=== PATIENT | female | born 1990 | race Caucasian/White ===

== ENCOUNTER 2020-02-02 12:52 | Outpatient (CLI) | payer OTHER, SELFPAY | END 2020-02-02 12:53 | disposition home or self-care (01) | PROVIDERS: Visit Provider Obstetrics & Gynecology | DX: Z34.90 Encounter for supervision of normal pregnancy, unspecified, unspecified trimester (principal) | CPT/HCPCS: 36415; 86850; 86900; 86901 ==

== ENCOUNTER 2020-03-15 14:49 | Outpatient (CLI) | payer OTHER, SELFPAY ==
--- NOTE | ~2020-03-15 | US_ITS ---
EXAMINATION: US OB follow up DATE: 03/15/2020 15:29 INDICATION: care. Establish dating of during early second trimester. TECHNIQUE: Real-time ultrasound of the pelvis was performed. The interpreting radiologist was not pre sent for the study. COMPARISON: None. FINDINGS: There is a single living fetus in variable presentation. The placenta is posterior. heart rate is 145 beats per minute (bpm). The amniotic fluid volume is subjectively normal. The following biometric data were obtained: BPD: 3.8 cm -> 17 weeks 4 days Head circumference: 13.6 cm -> 17 weeks 0 days Abdominal circumference: 11.2 cm -> 17 weeks 0 days Femur length: 2.2 cm -> 16 weeks 4 days These measurements are concordant. Head circumference to abdominal circumference ratio: 1.22 (normal range 1.07-1.29). Estimated weight: 171 g (+/-) 26 g. or 6 oz. (+/-) 1 oz. IMPRESSION: 1. Single living fetus in variable presentation with heart rate of 145 bpm. 2. Gestational age by ultrasound of 17 weeks 0 day(s) +/- 1 week(s) 1 day(s) with ultrasound estimate d date of delivery (JACKSON) of 08/23/2020. Estimated weight is 78th percentile by Hadlock criteria when 08/28/2020 is used as the JACKSON. Please correlate with clinical information or earlier ultrasound s for most accurate JACKSON. Reviewed, dictated and finalized at location A. IMPRESSION: 1. Single living fetus in variable presentation with heart rate of 145 bp m. 2. Gestational age by ultrasound of 17 weeks 0 day(s) +/- 1 week(s) 1 day(s) wi th ultrasound estimated date of delivery (JACKSON) of 08/23/2020. Estimated w eight is 78th percentile by Hadlock criteria when 08/28/2020 is used as the JACKSON . Please correlate with clinical information or earlier ultrasounds for most ac curate JACKSON.
== END 2020-03-15 14:50 | disposition home or self-care (01) ==
LOC: ANHIMG 14:56
PROVIDERS: Visit Provider Obstetrics & Gynecology
DX: Z34.92 Encounter for supervision of normal pregnancy, unspecified, second trimester (principal); Z3A.17 17 weeks gestation of pregnancy
CPT/HCPCS: 76816

== ENCOUNTER 2020-04-08 12:13 | Outpatient (CLI) | payer OTHER, SELFPAY ==
[2020-04-10 12:51] LABS: Progesterone 48.9 ng/mL (***)
== END 2020-04-08 12:14 | disposition home or self-care (01) ==
PROVIDERS: Visit Provider Obstetrics & Gynecology
DX: Z34.90 Encounter for supervision of normal pregnancy, unspecified, unspecified trimester (principal)
CPT/HCPCS: 36415; 84144

== ENCOUNTER 2020-07-12 08:58 | Outpatient (CLI) | payer OTHER, SELFPAY ==
--- NOTE | ~2020-07-12 | US_ITS ---
EXAMINATION: US OB follow up DATE: 07/12/2020 09:38 INDICATION: Encounter for supervision of normal . TECHNIQUE: Real-time ultrasound of the pelvis was performed. COMPARISON: Ultrasound 03/15/2020 FINDINGS: There is a single living fetus in vertex presentation. The placenta is posterior and fundal. h eart rate is 131 beats per minute (bpm). The amniotic fluid index is 13.3 cm, which is normal. The following biometric data were obtained: Biparietal diameter (BPD): 8.9 cm; head circumference (HC): 31.9 cm; abdominal circumference (AC): 29 .2 cm; femur length (FL): 6.7 cm. These measurements are concordant. Estimated weight is 2346 g +/- 352 g, which correlates with 46th percentile when 08/23/20 is us ed as estimated date of delivery. As single measurements, these parameters are each equal to the following estimated gestational ages: BPD: 35 weeks 6 days. HC: 35 weeks 6 days. AC: 33 weeks 1 days. FL: 34 weeks 3 days. estimated gestational age based solely on measurements from this exam is 34 weeks 6 days +/- 2 weeks 3 days. IMPRESSION: 1. Single living fetus in vertex presentation. 2. Estimated weight is 2346 g +/- 352 g, which correlates with 46th percentile when 08/23/20 i s used as estimated date of delivery. Reviewed, dictated and finalized at location A. IMPRESSION: 1. Single living fetus in vertex presentation. 2. Estimated weight is 2346 g +/- 352 g, which correlates with 46th perc entile when 08/23/20 is used as estimated date of delivery.
[2020-07-12] MEDS: RHO(D) IMMUNE GLOBULIN 300 MCG SYRINGE IM (15:26)
== END 2020-07-12 08:59 | disposition home or self-care (01) ==
PROVIDERS: Visit Provider Physician Assistant
DX: Z34.93 Encounter for supervision of normal pregnancy, unspecified, third trimester (principal)
CPT/HCPCS: 36415; 76816; 85461; 90384; 96372; J2790

== ENCOUNTER 2020-08-15 14:41 | Outpatient (CLI) | payer OTHER, SELFPAY ==
[2020-08-15 15:18] LABS: Basophils Percent Auto 0.4 % (0.2-1.2); Eosinophils Absolute Auto 0.2 K/mm3 (0-0.3); Eosinophils Percent Auto 1.5 % (0-4.4); Hematocrit 35.8 % (37.0-47.0); Hemoglobin 11.6 g/dL (12.0-15.0); Immature Granulocyte Absolute 0.12 K/mm3 (0.00-0.031); Immature Granulocyte Percent A 1.2 % (0-0.5); Lymphocytes Absolute Auto 1.89 K/mm3 (0.9-3.2); Lymphocytes Percent Auto 18.4 % (18.3-44.2); Mean Corpuscular HGB Conc 32.4 g/dl (32-36); Mean Corpuscular Hemoglobin 25.8 pg (26-34); Mean Corpuscular Volume 79.7 fl (80-100); Mean Platelet Volume 10.6 fl (7.4-10.4); Monocytes Absolute Auto 0.6 K/mm3 (0.1-0.6); Monocytes Percent Auto 5.7 % (2.6-8.5); Neutrophils Absolute Auto 7.5 K/mm3 (1.3-6.7); Neutrophils Percent Auto 72.8 % (45.5-73.1); Platelet Count Result 282 k/mm3 (150-375); Red Blood Count 4.49 M/mm3 (4.2-5.4); Red Cell Distribution Width 13.5 % (11.5-14.5); White Blood Count 10.3 K/mm3 (4.5-10.0)
[2020-08-15 16:09] LABS: HIV 1/2 Ab P24 Ag Result Negative (Negative)
[2020-08-16 11:09] LABS: Rapid Plasma Reagin Non-Reactive (NonReactive)
== END 2020-08-15 14:42 | disposition home or self-care (01) ==
PROVIDERS: PCP Obstetrics & Gynecology; Visit Provider Obstetrics & Gynecology
DX: Z01.812 Encounter for preprocedural laboratory examination (principal); O34.218 Maternal care for other type scar from previous cesarean delivery; Z3A.39 39 weeks gestation of pregnancy
CPT/HCPCS: 36415; 85025; 86592; 86703; 86850; 86900; 86901; G0432

== ENCOUNTER 2020-08-16 10:56 | Inpatient (IN) | payer OTHER, SELFPAY ==
[2020-07-24 13:40] VITALS: BMI 44.3
--- NOTE | 2020-08-15 19:48 | PM.IMHP ---
H&P: HPI History of Present Illness Date/Time: 08/15/20 19:48 Chief complaint: pre admit, Previous Narrative: Linda Portillo is a 30 year old female with history of NOÉ, depression, low progesterone, and prior due to failure to descend presents for Repeat LTCS under spinal anesthesia I explained her condition procedure and risks she understands accepts and agrees to proceed Review of Systems Review of Systems: All systems reviewed & are unremarkable except as noted in HPI and below Constitutional: Constitutional: Reports no additional constitutional complaints Eyes: Eyes: Reports no additional eye complaints ENT: Reports system reviewed and no additional complaints, except as documented Cardiovascular: Cardiovascular: Reports no additional cardiovascular complaints Respiratory: Respiratory: Reports no additional respiratory complaints Gastrointestinal: Gastrointestinal: Reports no additional gastrointestinal complaints Genitourinary: Genitourinary: Reports no additional female genitourinary complaints Musculoskeletal: Musculoskeletal: Reports no additional musculoskeletal complaints Integumentary/Breasts: Skin/Breast: Reports system reviewed and no additional complaints, except as docu Neurologic: Reports system reviewed and no additional complaints, except as documented Psychiatric: Psychiatric: Reports no additional psychiatric complaints Endocrine: Endocrine: Reports no additional endocrine complaints Hematologic/Lymphatic: Hematologic/Lymphatic: Reports no additional hematologic/lymphatic complaints Allergic/Immunologic: Allergic/Immunologic: Reports no additional allergic/immunologic complaints [facility] Past Medical History Medical History (Updated 08/15/20 @ 19:59 by Doug Orourke MD) BV (bacterial vaginosis) NOÉ (generalized anxiety disorder) MDD (major depressive disorder) Obese Rh negative status during UTI (urinary tract infection) during Surgical History Surgical History (Updated 08/15/20 @ 19:57 by Doug Orourke MD) Delivery by section 10/02/11 8-2 male Primary LTCS [facility] for CPD Family History Family History Father Hypertension Diabetes mellitus Mother Heart attack Social History Social History (Updated 08/15/20 @ 20:02 by Doug Orourke MD) Smoking packs per day: 0.5 Smoking cigarettes per day: 10.0 Years smoked: 5 Smoking pack-years: 2.50 Smoking status: Current some day smoker Tobacco type: cigarettes Second hand tobacco smoke exposure: Yes Alcohol intake: former Substance use: never Substance use type: does not use Living arrangements: with family Occupation/Education: unemployed Gender identity (if verbalized by the patient): Female Sexual Orientation (if Verbalized by the Patient): Straight or Heterosexual Spiritual care concerns: No Agree to blood products: Yes Exam Const: General: cooperative, healthy appearing, comfortable, well developed, alert, awake and Physically active Nutritional Appearance: average body habitus, well nourished and obese Orientation/consciousness: patient oriented x3 Limitations: no limitations HENMT: Head: normal to inspection Eyes: General: appearance normal, both eyes and all related structures Visual Montiel: normal visual montiel by confrontation Alignment and Position: alignment normal Neck: Neck: normal visual inspection and full ROM Chest: Chest palpation & inspection: normal inspection of the chest Breast/axilla inspection: normal inspection of the breasts Breast/axilla palpation: normal palpation of the breasts Resp: Effort & Inspection: normal respiratory effort Auscultation: clear to auscultation bilaterally Cardio: Jugular venous distension: no JVD Palpation: normal PMI Rate: regular rate Rhythm: regular rhythm Heart sounds: S1 normal heart sound present a
--- NOTE | 2020-08-15 20:07 | WPDHPUPDATE1 ---
History and Physical Update Update Date/Time: 08/16/20 08:07 History and Physical has been reviewed, including an updated exam of the patient. There are NO changes in the patient's condition. Risks, benefits, and alternatives have been discussed and questions answered. Patient agrees to proceed with procedure. Linda Portillo is a 30 year old female with history of NOÉ, depression, low progesterone, and prior due to failure to descend presents for Repeat LTCS under spinal anesthesia I explained her condition procedure and risks she understands accepts and agrees to proceed
--- NOTE | 2020-08-15 20:08 | WPDOBADMIT ---
Obstetrics - Admit Note Admission Note: record reviewed. No pertinent additions to the history and/or any subsequent changes in the physical findings that are not consistent with the expected course of the were found. Additions to the history and/or subsequent changes in the physical findings follow. None. Linda Portillo is a 30 year old female with history of NOÉ, depression, low progesterone, and prior due to failure to descend presents for Repeat LTCS under spinal anesthesia I explained her condition procedure and risks she understands accepts and agrees to proceed
[2020-08-16] VITALS (76 sets, daily range): BP systolic 86–132; BP diastolic 42–106; PULSE 71–138; RESP 16–20; TEMP 36–36.9; O2SAT 82–100; BMI 45.7
[2020-08-16] MEDS: LACTATED RINGERS 1,000 ML 125 ML IV CONT ×2 (11:25→12:00)
--- NOTE | 2020-08-16 11:30 | LDADM ---
This patient, Linda Portillo, was admitted to OB room 118 on 08/16/20 at 10:56. Plans for Surgery/ and pain management were discussed with patient. Patient/family oriented to hospital policies and general routines including ID bracelet, bed and alarms, visiting hours, pain management, procedures, bathroom and other care routines, personal items, smoking policy, room service/diet and guest tray routines, security routines, and visiting hours. Patient/Family are encouraged to report perceived risks to care and to ask questions if they do not understand what they are told or what they should do.
--- NOTE | 2020-08-16 11:47 | P.PNAN_ITS ---
Anes - Initial Pre Proc Eval Procedure: Operation Date: 08/16/20 12:00 Proposed Procedures p Repeat Low Transverse Section - Doug Orourke MD Date/Time: 08/16/20 11:47 Surgeon: Doug Orourke MD Pre Op Diagnosis: C Section Patient Data Age: 30 Gender: F Height: 5 ft 2 in Weight: 110 kg Last Vital Signs Pulse 99 08/16/20 11:31 BP 114/69 08/16/20 11:31 Allergies Allergy/AdvReac Type Severity Reaction Status Date / Time pistachio nut Allergy Swelling Verified 08/16/20 11:15 of Lip/Tongue/Throat Home Medications Medication Instructions Recorded Confirmed Type No Home Medications 08/16/20 08/16/20 History Patient hx anesthesia problems: none Family hx anesthesia problems: none PMFSH Past Medical History Medical History BV (bacterial vaginosis) NOÉ (generalized anxiety disorder) MDD (major depressive disorder) Obese Rh negative status during UTI (urinary tract infection) during Surgical History Surgical History Delivery by section 10/02/11 8-2 male Primary LTCS [facility] for CPD Family History Family History Father Hypertension Diabetes mellitus Mother Heart attack Social History Social History Smoking packs per day: 0.5 Smoking cigarettes per day: 10.0 Years smoked: 5 Smoking pack-years: 2.50 Smoking status: Current some day smoker Tobacco type: cigarettes Second hand tobacco smoke exposure: Yes Alcohol intake: former Substance use: never Substance use type: does not use Gender identity (if verbalized by the patient): Female Spiritual care concerns: No Agree to blood products: Yes Anes - Eval Final PreProcedure Day of Procedure 08/16/20 11:47 Patient weight: morbidly obese Heart: regular rate and rhythm Lungs: decreased breath sounds Airway: Mallampati scale class II Neurological: alert and oriented Last oral intake: >/= 8 hours ASA classification: III Emergent: no Anesthetic plan: proceed Anesthesia type and monitoring: regional spinal and standard monitoring Informed Consent: The patient's anesthetic plan and its attendant risks and benefits were discussed with the patient/family/POA. Questions were solicited and answers provided to the satisfaction of the patient/family/POA.
--- NOTE | 2020-08-16 12:11 | PM.OBPRVD ---
OB - Delivery Note Procedure Delivery date: 08/16/20 Procedure: Procedures Operation Date: 08/16/20 12:00 repeat low-transverse section with delivery of viable male infant and placenta events: Previous Intrapartal events: None Induction method: none Delivery monitor: external FHT and external uterine Route of delivery: ( repeat low-transverse) Episiotomy description: None Laceration Description: None Specimen: Yes ( placenta, cord blood, cord blood gases) Estimated blood loss (mL): 825 Anesthesia type: Spinal Disposition: floor Complications: none [place] Baby Date of : 08/16/20 Time of : 12:46 Weeks of gestation at delivery: 39 gender: Male (Jamie) Weight (pounds): 8 Weight (ounces): 11 presentation: vertex position: Left Occiput Transverse Placenta delivery description: Manual Removal and Normal Configuration cord vessel description: 3 Vessels score one minute: 9 score five minutes: 9
[2020-08-16] MEDS: ceFAZolin 2 GM/D5W 50 ML 2 GM/50 ML BAG IVPB (12:12)
--- NOTE | 2020-08-16 12:15 | PM.PROC ---
Procedure Note - Detailed Date of procedure: 08/16/20 Pre-op diagnosis: C Section term Previous desires repeat section Major depressive disorder Generalized anxiety disorder Rh negative Obesity Post-op diagnosis: same ( delivered viable male infant and placenta ; extensive abdominal adhesions from previous in [place]) Procedure performed: repeat low-transverse section with delivery of viable male and placenta Adhesiolysis repair of uterine scar and rectus muscle abnormality from previous surgery in [place] Description of procedure: informed consent obtained patient taken to the operating room where spinal anesthetic was administered in the sitting position. The patient was placed in the supine position a Rutledge catheter was inserted. Her abdomen was shaved and then prepped and then draped with a traxi abdominall support. Time-out was performed and testing of the abdominal wall for adequate pain relief was confirmed. An elliptical incision was made around the old scar the old scar was excised using electrocautery fascia was entered bilaterally undermined inferiorly and superior rectus muscle midline extensive adhesions noted from the uterus to the anterior abdominal wall therefore I made a lower segment incision clear fluid obtained and digitally dissected the opening to the uterus and with extensive fundal pressure viable male infant was delivered via the abdominal incision the nose and throat were bulb suctioned cord was clamped and cut spontaneous respirations and cry baby was handed to the nurse in attendance scores given 9 and 9 weight 811 and 20 inches long born at 12:46 p.m. the placenta was then delivered and the uterus contracted well with Pitocin given intravenously and 10 units into the myometrium extensive adhesiolysis was then performed to remove the uterus from the abdominal cavity and a vertical scar from the previous entered into the myometrium requiring a 3 layer closure 1st the endometrium was closed in a transverse fashion and a interlocking fashion 2nd the myometrium was closed in a longitudinal fashion and a running interlocking fashion and 3rd imbricating stitches were used along the T like incision to restore normal anatomy I placed an adhesion barrier across the uterine incision and then repaired the rectus muscles interrupted fashion with 0 Vicryl suture the fascia was closed with 2. Quill SIRS system bilaterally Rocco's fascia reapproximated 3 0 plain and the skin was closed with absorbable vinny insorb system. Skin was closed with Dermabond a Mepilex dressing was placed along the abdominal incision patient was taken to the recovery room stable condition she tolerated the procedure well mom and baby in stable condition Anesthesia: spinal Surgeon: Duog Orourke MD Knuckle Strap Sewer: surgical nurse x2 Estimated blood loss (mL): 825 IV fluids (mL): 3,000 Urine output (mL): 100 Drains: Yes ( Rutledge) Packing: No Pathology: yes ( placenta cord gases and cord blood) Complications: None Condition: stable Disposition: floor Findings: viable male infant born at 12:46 p.m. on 08/16/2020 spontaneous respirations and cry no observed abnormalities on examination normal transition after bulb suction and stimulation scores 9 and 9 at 1 and 5 minutes weight 8 lb 11 oz length 20 inches long g 3550 taken to the nursery in stable condition Placenta intact three-vessel cord Extensive adhesions anterior uterus requiring extensive repair of uterus and rectus muscles from previous surgery in [place] Rest of the fallopian tubes ovaries and upper abdomen was clean Hemostasis excellent Sponge needle instrument counts correct No complication VTE prevention SCDs Antibiotic prophylaxis Ancef 2 g Spinal Duramorph OR 2.
[2020-08-16] MEDS: OXYTOCIN 10 UNITS/ML VIAL IM (12:47)
--- NOTE | 2020-08-16 13:17 | SUR.OPER ---
[employer] Lot # [id number] placed intraperitoneal. EXP 09-09-2024
[2020-08-16] MEDS: LORATADINE 10 MG TABLET PO (14:09)
[2020-08-16] MEDS: OXYTOCIN 30 UNITS/NS 500 ML 30 UNITS/500 ML BAG 125 UNITS IV CONT (15:55)
--- NOTE | 2020-08-16 16:10 | SUR.PHASEI ---
Dr. Orourke informed pt has only had 75 ml of dayami urine in the last 2 hrs and the amount emptied from her parks from OR was actually 50 ml and not the 100 reported by anesthesia. Order received to irrigate parks with 50 ml of NS to verify patency.
--- NOTE | 2020-08-16 16:21 | SUR.PHASEI ---
Rutledge catheter flushed with 50 ml of NS and 50 ml of fluid returned.
[2020-08-16] MEDS: KETOROLAC 30 MG/ML VIAL (*BKC) IV PUSH (18:37)
[2020-08-16] MEDS: DOCUSATE SODIUM 100 MG CAPSULE PO (18:38)
[2020-08-16] MEDS: DEXTROSE 5%/0.45% SOD CHL 1,000 ML 125 ML IV CONT (20:25)
[2020-08-17] VITALS: BP 117/63; PULSE 104; RESP 16; TEMP 36.8; O2SAT 96
[2020-08-17] MEDS: KETOROLAC 30 MG/ML VIAL (*BKC) IV PUSH (00:26)
[2020-08-17 04:00] VITALS: BP 104/60; PULSE 109; RESP 16; TEMP 36.8; O2SAT 99
[2020-08-17 04:56] LABS: Basophils Percent Auto 0.3 % (0.2-1.2); Eosinophils Absolute Auto 0.1 K/mm3 (0-0.3); Eosinophils Percent Auto 0.9 % (0-4.4); Hematocrit 28.5 % (37.0-47.0); Hemoglobin 9.3 g/dL (12.0-15.0); Immature Granulocyte Absolute 0.08 K/mm3 (0.00-0.031); Immature Granulocyte Percent A 0.7 % (0-0.5); Lymphocytes Absolute Auto 1.51 K/mm3 (0.9-3.2); Mean Corpuscular HGB Conc 32.6 g/dl (32-36); Mean Corpuscular Hemoglobin 26.3 pg (26-34); Mean Corpuscular Volume 80.7 fl (80-100); Mean Platelet Volume 10.8 fl (7.4-10.4); Monocytes Absolute Auto 0.8 K/mm3 (0.1-0.6); Monocytes Percent Auto 6.5 % (2.6-8.5); Neutrophils Absolute Auto 9.2 K/mm3 (1.3-6.7); Neutrophils Percent Auto 78.6 % (45.5-73.1); Platelet Count Result 193 k/mm3 (150-375); Red Blood Count 3.53 M/mm3 (4.2-5.4); Red Cell Distribution Width 13.7 % (11.5-14.5); White Blood Count 11.7 K/mm3 (4.5-10.0)
[2020-08-17 06:40] VITALS: BP 112/62; PULSE 111; RESP 20; TEMP 36.7
[2020-08-17] MEDS: HYDROcodone/acetaminophen (*CRX) 5-325 MG TABLET 1 TAB PO ×3 (07:47→19:26)
[2020-08-17] MEDS: DOCUSATE SODIUM 100 MG CAPSULE PO ×2 (07:48→16:58)
[2020-08-17] MEDS: MULTIVIT/MIN/PREN/FOL AC/IRON TABLET 1 TAB PO (07:48)
[2020-08-17] MEDS: POLYSACCHARIDE IRON COMPLEX 150 MG CAPSULE PO ×2 (07:49→16:58)
[2020-08-17] MEDS: IBUPROFEN 600 MG TABLET PO ×3 (07:50→20:02)
--- NOTE | 2020-08-17 09:47 | WPDANLDPN2 ---
Anes-Prog Note L&D Date/Time: 08/17/20 09:47 Comfortable throughout: section Neuraxial method: spinal Epidural/Spinal procedure site: clean & non-tender Neuro status: Neuro function grossly intact. Cardiovascular status: normal Respiratory status: normal Airway patency: baseline Mental status: baseline Post-Op hydration status: normal Vital Signs: Last Vital Signs Temp 36.7 C 08/17/20 06:40 Pulse 111 H 08/17/20 06:40 Resp 20 08/17/20 06:40 BP 112/62 08/17/20 06:40 Pulse Ox 99 08/17/20 04:00 Pain score (VAS): 10/20 I/O: Intake & Output 08/16/20 08/17/20 08/17/20 23:59 07:59 15:59 Intake Total 650 1800 Output Total 185 950 400 Balance 465 850 -400 Post-procedural complaints: none Patient feedback: Patient satisfied with anesthetic care.
--- NOTE | 2020-08-17 09:48 | WPDANLDNPN2 ---
Anes-Prog Note L&D-Neuraxial Date/Time: 08/17/20 09:48 Neuraxial medications: intrathecal PF morphine Opiod-related complaints: none Patient feedback: Patient satisfied with post-operative pain management.
--- NOTE | 2020-08-17 12:43 | PM.OBPNVD ---
OB - PN: Subj Subjective Date/time seen: 08/17/20 12:43 POD#1 She reports doing well today, feels better after showering. Her pain is controlled w/ PO pain meds. She has tolerated regular diet. She has ambulated. She is voiding and passing flatus. She reports her bleeding is light. She is breast and bottle feeding. She would like her son to be circumcised. She would like to go home tomorrow. She denies fever, chills, headaches, vision changes, nausea, vomiting, shortness of breath, chest pain, dizziness or palpitations. OB - PN: Obj Data Labs CBC & Chem 7: 08/17/20 04:33 Labs: Laboratory Results - last 24 hr 08/17/20 08/17/20 04:33 04:33 WBC 11.7 H RBC 3.53 L Hgb 9.3 L Hct 28.5 L MCV 80.7 MCH 26.3 MCHC 32.6 RDW 13.7 Plt Count 193 MPV 10.8 H Immature Gran % (Auto) 0.7 H Neut % (Auto) 78.6 H Lymph % (Auto) 13.0 L [place] % (Auto) 6.5 Eos % (Auto) 0.9 Baso % (Auto) 0.3 Lymph # (Auto) 1.51 [place] # (Auto) 0.8 H Eos # (Auto) 0.1 Baso # (Auto) 0.0 Abs Immat Gran (auto) 0.08 H Absolute Neuts (auto) 9.2 H Absolute Nucleated RBC 0.0 Nucleated RBC % 0.0 Blood Type B Negative Antibody Screen Negative Screen Negative Baby's Blood Type O pos Baby's LATESHA Negative Doses of RhIg Required 1 OB - PN A/P Assessment and Plan (1) Delivery by section: Status: Acute Plan day: 1 Plan: routine care, discharge home (tomorrow) and follow up 6 weeks (w/ Dr. Orourke) Comments: ER return precautions discussed Time Spent With Patient Time: Total time spent is greater than 50% in coordination of care (as documented) at patient's floor/unit and/or counseling patient: Time with patient: less than 15 minutes Review of Systems Review of Systems: All systems reviewed & are unremarkable except as noted in HPI and below (HPI) Exam Const: General: cooperative, healthy appearing, comfortable and no acute distress Resp: Effort & Inspection: normal respiratory effort Auscultation: clear to auscultation bilaterally Cardio: Rate: regular rate GI: Inspection: normal to inspection, distended and incision (covered w/ clean dressing) GI Palp: Yes abdominal tenderness (appropriate) and Yes Soft to palpation Auscultation: normal bowel sounds : Other: fundus firm at umbilicus Skin: General skin exam: normal color Neuro: General: patient oriented x3 Extrem: General: normal to inspection Psych: Appearance: grossly normal and well kempt Affect: normal affect Attitude: cooperative
[2020-08-17] MEDS: RHO(D) IMMUNE GLOBULIN 300 MCG SYRINGE IM (16:02)
[2020-08-17] MEDS: TETANUS,DIPHTHERIA,AC PERTUSSIS ADULT (0.5 ML) BOOSTRIX IM (19:28)
[2020-08-17 20:00] VITALS: BP 119/71; PULSE 100; RESP 18; TEMP 37.1; O2SAT 99
[2020-08-18] MEDS: IBUPROFEN 600 MG TABLET PO ×2 (01:56→09:05)
[2020-08-18] MEDS: HYDROcodone/acetaminophen (*CRX) 5-325 MG TABLET 1 TAB PO ×2 (01:56→09:06)
[2020-08-18 09:00] VITALS: BP 120/79; PULSE 103; RESP 20; TEMP 36.2
[2020-08-18] MEDS: POLYSACCHARIDE IRON COMPLEX 150 MG CAPSULE PO (09:04)
[2020-08-18] MEDS: DOCUSATE SODIUM 100 MG CAPSULE PO (09:04)
[2020-08-18] MEDS: MULTIVIT/MIN/PREN/FOL AC/IRON TABLET 1 TAB PO (09:05)
[2020-08-18] MEDS: MEASLES,MUMPS,RUBELLA VACCINE 0.5 ML VIAL SUB-Q (11:21)
--- NOTE | 2020-08-18 12:16 | PM.OBDSVD ---
DS: Admitting Diagnosis Admitting Diagnosis Admitting Diagnosis: C Section Term previous desires Repeat section Generalized anxiety disorder Major depressive disorder Rh negative Obesity DS: Discharge Diagnosis Discharge Diagnosis (1) Term delivered: Code(s): O80 - Encounter for full-term uncomplicated delivery Status: Acute (2) Delivery by section: Status: Acute (3) NOÉ (generalized anxiety disorder): Code(s): F41.1 - Generalized anxiety disorder Status: Acute (4) Obese: Code(s): E66.9 - Obesity, unspecified Status: Acute (5) MDD (major depressive disorder): Code(s): F32.9 - Major depressive disorder, single episode, unspecified Status: Acute (6) Rh negative status during : Code(s): O26.899 - Other specified related conditions, unspecified trimester; Z67.91 - Unspecified blood type, Rh negative Status: Acute OB - DS: Summary Hospital Course Time spent discussing smoking cessation with patient: 3 to 10 minutes OB Procedures : Ultrasound OB Procedures Intrapartum: ( repeat) low cervical, transverse OB Procedures: : None Peripartum Data Delivery Method: Section ( repeat low-transverse section) Laceration Description: None Episiotomy description: None Procedures: Procedures Operation Date: 08/16/20 12:00 repeat low-transverse section with delivery of viable male infant and placenta Extensive adhesiolysis and repair of previous uterine scar from in [place] complications: none [place] 1: Disposition of : home Status at Discharge Functional status at discharge: independent ambulation Overall status at discharge: patient is progressing back to baseline Time Spent with Patient Time attestation: Total time spent providing and/or coordinating discharge services: Time spent: Less than 30 minutes Exam Const: General: cooperative, healthy appearing, comfortable, no acute distress, well developed, alert, awake and Physically active Nutritional Appearance: average body habitus and overweight Orientation/consciousness: patient oriented x3 Limitations: no limitations HENMT: Head: normal to inspection Eyes: General: appearance normal, both eyes and all related structures Neck: Neck: normal visual inspection and full ROM Chest: Chest palpation & inspection: normal inspection of the chest Breast/axilla inspection: normal inspection of the breasts Breast/axilla palpation: normal palpation of the breasts Resp: Effort & Inspection: normal respiratory effort Auscultation: clear to auscultation bilaterally Cardio: Jugular venous distension: no JVD Palpation: normal PMI Rate: regular rate Rhythm: regular rhythm Heart sounds: S1 normal heart sound present and S2 normal heart sound present GI: Inspection: normal to inspection and incision ( dressing dry and intact) GI Palp: Yes Soft to palpation and Yes Firmness to palpation present (GI) ( uterus) Percussion: Yes normal to percussion Auscultation: normal bowel sounds : External Female Exam: normal external appearance Urinary Catheter: Urinary Catheter: urine clear Back/Spine/Pelvis: Back: no CVA tenderness Cervical Spine: normal cervical lordosis Skin: General skin exam: normal color and no rashes or lesions noted Neuro: General: patient oriented x3, gait normal, tone normal, moves all extremities, Normal light touch and pain sensation, no meningeal signs, no focal motor deficits and CN's II-XI intact bilaterally Cognition (Neuro): normal cognition Speech: normal speech Gait exam (Neuro): Normal gait present Motor exam (neuro): 5/5 motor strength present throughout Sensory Exam: normal sensation Extrem: General: normal to inspection, full ROM and capillary refill normal Psych: Appearance: grossly normal Mental Status: mental st
[2020-08-19 07:55] VITALS: BP 120/70; PULSE 93; RESP 20; TEMP 36.8; O2SAT 100
== END 2020-08-18 12:01 | disposition home or self-care (01) | DRG 787 ==
LOC: ANHLDR 12:22 → ANHOB2 17:08
PROVIDERS: Admitting Provider Obstetrics & Gynecology; PCP Obstetrics & Gynecology; Visit Provider Obstetrics & Gynecology
PROC: 10D00Z1 Extraction of Products of Conception, Low, Open Approach (ICD-10-PCS; CPT 59514; principal; 2020-08-16 12:00)
DX: O34.211 Maternal care for low transverse scar from previous cesarean delivery (principal); O36.0930 Maternal care for other rhesus isoimmunization, third trimester, not applicable or unspecified; Z37.0 Single live birth; Z3A.39 39 weeks gestation of pregnancy; O99.344 Other mental disorders complicating childbirth; F41.8 Other specified anxiety disorders; O99.214 Obesity complicating childbirth; E66.01 Morbid (severe) obesity due to excess calories; O99.334 Smoking (tobacco) complicating childbirth; F17.210 Nicotine dependence, cigarettes, uncomplicated
CPT/HCPCS: 36415; 85025; 85461; 88307; 90384; 90710; 90715; A9270; J0131; J0690; J1200; J1885; J2274; J2370; J2405; J2590; J2790; J3010; J7120